=== PATIENT | female | born 1985 | race Two or more races ===

== ENCOUNTER 2017-06-10 09:00 | Observation (INO) | payer MEDICAID ==
[2017-06-10 10:26] LABS: Basophils # (auto) 0.1 uL; Basophils % (auto) 0.9 % (0.0-2.0); CONDITION Y; Eosinophils # (auto) 0.1 uL; Eosinophils % (auto) 1.1 % (0.0-7.0); Hematocrit 36.2 % (36.0-46.0); Hemoglobin 12.1 g/dL (12.2-16.2); Lymphocytes # (auto) 1.9 uL; Lymphocytes % (auto) 21.7 % (10.0-50.0); Mean Corpuscular Hemoglobin 29.6 pg (28.0-32.0); Mean Corpuscular Hgb Conc. 33.4 g/dL (32.0-36.0); Mean Corpuscular Volume 88.5 fL (80.0-100.0); Mean Platelet Volume 11.1 fL (7.4-10.4); Monocytes # (auto) 0.5 uL; Neutrophils # (auto) 6.2 uL; Neutrophils % (auto) 70.3 % (37.0-80.0); Platelet Count (auto) 283 10^3/uL (140-450); Red Cell Distribution Width 14.7 % (11.6-16.0); White Blood Cell 8.9 10^3/uL (4.4-10.8)
== END 2017-06-10 10:10 | disposition home or self-care (01) | DRG 566 ==
LOC: LDRP 09:00
PROVIDERS: ADMIT Specialist; ATTEND Specialist
DX: O26.893 Other specified pregnancy related conditions, third trimester (principal); Z3A.35 35 weeks gestation of pregnancy
CPT/HCPCS: 36415; 59025; 81002; 85025; 86592; G0378

== ENCOUNTER 2017-06-17 08:30 | Observation (INO) | payer MEDICAID ==
[~2017-06-17] VITALS: Ht 154.9 cm; Wt 81.6 kg
[2017-06-17] MEDS ORDERED: LACTATED RINGER'S 1,000 ML IV ONE (11:04)
[2017-06-17] MEDS ORDERED: LACTATED RINGER'S 1,000 ML IV SCH (11:04)
[2017-06-17] MEDS: TERBUTALINE SULFATE 1 MG/ML 1ML VIAL SC SCH ×3 (11:42→13:15)
[2017-06-17] MEDS ORDERED: PREN-96 PO (12:16)
== END 2017-06-17 14:30 | disposition home or self-care (01) | DRG 566 ==
LOC: LDRP 08:30
PROVIDERS: ADMIT Specialist; ATTEND Specialist
DX: O24.419 Gestational diabetes mellitus in pregnancy, unspecified control (principal); O60.03 Preterm labor without delivery, third trimester; Z3A.36 36 weeks gestation of pregnancy; Z87.891 Personal history of nicotine dependence
CPT/HCPCS: 59025; 76818; 81002; 82962; 96360; 96361; 96372; G0378; J3105; 96366

== ENCOUNTER 2017-06-24 09:30 | Observation (INO) | payer MEDICAID ==
[~2017-06-24 09:30] MED LIST: PREN-96 PO
== END 2017-06-24 10:40 | disposition home or self-care (01) | DRG 566 ==
LOC: LDRP 09:30
PROVIDERS: ADMIT Obstetrics & Gynecology; ATTEND Obstetrics & Gynecology
DX: O62.9 Abnormality of forces of labor, unspecified (principal); Z3A.37 37 weeks gestation of pregnancy
CPT/HCPCS: 59025; 81002; G0378

== ENCOUNTER 2017-07-01 08:40 | Observation (INO) | payer MEDICAID ==
[~2017-07-01] VITALS: Ht 1 cm; Wt 0.5 kg
[2017-07-01] MEDS ORDERED: TERBUTALINE SULFATE 1 MG/ML 1ML VIAL SC ONE (10:24)
[2017-07-02] MEDS ORDERED: TERBUTALINE SULFATE 1 MG/ML 1ML VIAL SC ONE (10:00)
== END 2017-07-01 11:10 | disposition home or self-care (01) | DRG 566 ==
LOC: LDRP 08:40
PROVIDERS: ADMIT Specialist; ATTEND Specialist
DX: O24.419 Gestational diabetes mellitus in pregnancy, unspecified control (principal); Z3A.38 38 weeks gestation of pregnancy
CPT/HCPCS: 59025; 76818; 81002; 82948; 82962; 96372; G0378; J3105

== ENCOUNTER 2017-07-06 04:14 | Inpatient (IN) | payer MEDICAID ==
[~2017-07-06] VITALS: Ht 157.5 cm; Wt 88.9 kg
[2017-07-06] VITALS (12 sets, daily range): BP systolic 104–124; BP diastolic 51–73
[2017-07-06] MEDS: LACTATED RINGER'S 1,000 ML IV SCH ×3 (04:19→20:19)
[2017-07-06 04:46] LABS: Urine Bilirubin Negative (Negative); Urine Blood 1+ /uL (Negative); Urine Color Yellow (Yellow); Urine Glucose Normal (Normal); Urine Ketone Negative (Negative); Urine Mucus FEW (None Seen); Urine Nitrite Negative (Negative); Urine RBC 1 /hpf (0 - 4); Urine Squamous Epithelial Cell FEW /hpf (<5); Urine Urobilinogen Normal (Negative)
[2017-07-06 05:16] LABS: Basophils # (auto) 0.1 uL; Basophils % (auto) 0.7 % (0.0-2.0); Eosinophils # (auto) 0.1 uL; Eosinophils % (auto) 1.2 % (0.0-7.0); Hematocrit 38.4 % (36.0-46.0); Hemoglobin 12.8 g/dL (12.2-16.2); Lymphocytes # (auto) 2.8 uL; Lymphocytes % (auto) 31.2 % (10.0-50.0); Mean Corpuscular Hemoglobin 29.5 pg (28.0-32.0); Mean Corpuscular Hgb Conc. 33.3 g/dL (32.0-36.0); Mean Corpuscular Volume 88.6 fL (80.0-100.0); Mean Platelet Volume 9.8 fL (6.9-10.8); Monocytes # (auto) 0.7 uL; Monocytes % (auto) 7.3 % (0.0-12.0); Neutrophils # (auto) 5.3 uL; Neutrophils % (auto) 59.6 % (37.0-80.0); Nucleated Red Blood Cells % 0.1 %; Platelet Count (auto) 270 10^3/uL (140-450); Red Cell Distribution Width 14.7 % (11.8-14.3); White Blood Cell 8.9 10^3/uL (4.4-10.8)
[2017-07-06] MEDS ORDERED: TERBUTALINE SULFATE 1 MG/ML 1ML VIAL SC ONE (05:28)
[2017-07-06 05:29] LABS: INR 0.9 (0.9-1.15); Partial Thromboplastin Time 30.9 sec (22.64-33.71); Prothrombin Time 9.8 sec (9.37-12.3)
[2017-07-06 05:44] LABS: Albumin 2.8 g/dL (3.4-5.0); BUN/Creatinine Ratio 18.2; Calcium 8.9 mg/dL (8.5-10.1); Potassium 4.5 mmol/L (3.5-5.1)
[2017-07-06 05:47] LABS: Bilirubin, Total 0.4 mg/dL (0.2-1.0); Total Protein 6.5 g/dL (6.4-8.2)
[2017-07-06] MEDS ORDERED: fentaNYL CITRATE 100 MCG/2 ML VL ONE (07:16)
[2017-07-06] MEDS ORDERED: MIDAZOLAM HCL 1MG/1ML-2 ML VIAL ONE (07:37)
[2017-07-06] MEDS ORDERED: LACT. RINGERS/OXYTOCIN 20UNITS 1,000 ML IV SCH (08:12)
[2017-07-06] MEDS ORDERED: MORPHINE SULF INJ 2 MG/ML SYRINGE 1ML IV PRN (08:15)
[2017-07-06] MEDS ORDERED: ceFAZolin 1GM/50ML D5W 50 ML IV SCH (08:15)
[2017-07-06] MEDS ORDERED: ONDANSETRON HCL 4 MG/2 ML VIAL IV PRN (08:15)
[2017-07-06] MEDS ORDERED: ePHEDrine SULFATE 50 MG/ML AMP IV PRN (08:45)
[2017-07-06] MEDS ORDERED: HYDROmorphone HCL 2 MG/ML VL IV PRN (08:45)
[2017-07-06] MEDS ORDERED: hydrALAZINE HCL 20 MG/ML VL IV PRN (08:45)
[2017-07-06] MEDS ORDERED: ONDANSETRON HCL 4 MG/2 ML VIAL IV ONE (08:45)
[2017-07-06] MEDS: KETOROLAC TROMETH 30 MG/ML 1ML VIAL IV PRN ×2 (09:37→17:51)
[2017-07-06] MEDS: HYDROmorphone HCL 2 MG/ML VL IV PRN ×3 (11:32→20:01)
[2017-07-06] MEDS ORDERED: OXYTOCIN 10UNIT/ML 1ML VIAL IV ONE (12:17)
[2017-07-06] MEDS ORDERED: ceFAZolin 1GM VL IV ONE (12:17)
[2017-07-06] MEDS: ceFAZolin 1GM/50ML D5W 50 ML IV SCH ×2 (16:00→23:43)
[2017-07-06 20:25] LABS: Basophils # (auto) 0 uL; Basophils % (auto) 0.2 % (0.0-2.0); Eosinophils # (auto) 0 uL; Eosinophils % (auto) 0.1 % (0.0-7.0); Hematocrit 30.1 % (36.0-46.0); Hemoglobin 9.9 g/dL (12.2-16.2); Lymphocytes # (auto) 1.9 uL; Lymphocytes % (auto) 15.6 % (10.0-50.0); Mean Corpuscular Hemoglobin 29.5 pg (28.0-32.0); Mean Corpuscular Hgb Conc. 32.9 g/dL (32.0-36.0); Mean Corpuscular Volume 89.6 fL (80.0-100.0); Mean Platelet Volume 9.8 fL (6.9-10.8); Monocytes # (auto) 0.7 uL; Monocytes % (auto) 5.9 % (0.0-12.0); Neutrophils # (auto) 9.8 uL; Neutrophils % (auto) 78.2 % (37.0-80.0); Platelet Count (auto) 224 10^3/uL (140-450); White Blood Cell 12.5 10^3/uL (4.4-10.8)
[2017-07-07] MEDS: HYDROmorphone HCL 2 MG/ML VL IV PRN (00:54)
[2017-07-07 02:33] VITALS: BP 102/62
[2017-07-07] MEDS: KETOROLAC TROMETH 30 MG/ML 1ML VIAL IV PRN (02:52)
[2017-07-07 03:30] VITALS: BP 97/59
[2017-07-07] MEDS ORDERED: SIMETHICONE 80 MG CHEWABLE TABLET PO SCH (06:00)
[2017-07-07] MEDS: HYDROcodone-ACET 5/325MG TAB PO PRN ×3 (06:42→17:28)
[2017-07-07 06:53] LABS: Basophils # (auto) 0 uL; Basophils % (auto) 0.4 % (0.0-2.0); Eosinophils # (auto) 0 uL; Eosinophils % (auto) 0.2 % (0.0-7.0); Hematocrit 31.9 % (36.0-46.0); Hemoglobin 9.7 g/dL (12.2-16.2); Lymphocytes # (auto) 2.2 uL; Lymphocytes % (auto) 17.9 % (10.0-50.0); Mean Corpuscular Hemoglobin 29.5 pg (28.0-32.0); Mean Corpuscular Hgb Conc. 30.4 g/dL (32.0-36.0); Mean Corpuscular Volume 97.1 fL (80.0-100.0); Mean Platelet Volume 9.9 fL (6.9-10.8); Monocytes # (auto) 0.9 uL; Monocytes % (auto) 7.6 % (0.0-12.0); Neutrophils % (auto) 73.9 % (37.0-80.0); Platelet Count (auto) 157 10^3/uL (140-450); Red Cell Distribution Width 16.2 % (11.8-14.3); White Blood Cell 12.1 10^3/uL (4.4-10.8)
[2017-07-07 07:30] VITALS: BP 97/49
[2017-07-07] MEDS: DOCUSATE CALCIUM 240 MG CAP PO SCH (09:48)
[2017-07-07] MEDS: DOCUSATE SOD 100 MG CAP PO SCH ×2 (09:48→21:49)
[2017-07-07] MEDS: LACTATED RINGER'S 1,000 ML IV SCH ×2 (10:20→15:04)
[2017-07-07 11:30] VITALS: BP 98/54
[2017-07-07] MEDS: SIMETHICONE 80 MG CHEWABLE TABLET PO PRN ×2 (11:47→12:16)
[2017-07-07] MEDS: IBUPROFEN 800 MG TAB PO PRN (14:33)
[2017-07-07 15:43] VITALS: BP 109/70
[2017-07-07 20:11] VITALS: BP 108/71
[2017-07-08] VITALS (8 sets, daily range): BP systolic 104–126; BP diastolic 50–87
[2017-07-08] MEDS: HYDROcodone-ACET 5/325MG TAB PO PRN ×4 (00:13→17:22)
[2017-07-08] MEDS: LACTATED RINGER'S 1,000 ML IV SCH ×3 (01:04→21:04)
[2017-07-08] MEDS ORDERED: IBUPROFEN 400 MG TAB PO ONE (02:58)
[2017-07-08] MEDS: IBUPROFEN 800 MG TAB PO PRN ×3 (03:12→22:37)
[2017-07-08] MEDS: DOCUSATE CALCIUM 240 MG CAP PO SCH (10:05)
[2017-07-08] MEDS: DOCUSATE SOD 100 MG CAP PO SCH ×2 (10:05→22:30)
[2017-07-09 03:10] VITALS: BP 109/54
[2017-07-09 08:00] VITALS: BP 117/81
[2017-07-09] MEDS: IBUPROFEN 800 MG TAB PO PRN (09:35)
[2017-07-09] MEDS: DOCUSATE CALCIUM 240 MG CAP PO SCH (09:58)
[2017-07-09] MEDS: DOCUSATE SOD 100 MG CAP PO SCH (09:59)
== END 2017-07-09 10:00 | disposition home or self-care (01) | DRG 540 ==
LOC: LDRP 04:14
PROVIDERS: ADMIT Obstetrics & Gynecology; ATTEND Obstetrics & Gynecology
PROC: 4A0HXCZ Measurement of Products of Conception, Cardiac Rate, External Approach (ICD-10-PCS; 2017-07-06)
PROC: 10D00Z1 Extraction of Products of Conception, Low, Open Approach (ICD-10-PCS; principal; 2017-07-06 07:21)
DX: O34.211 Maternal care for low transverse scar from previous cesarean delivery (principal); O60.23X0 Term delivery with preterm labor, third trimester, not applicable or unspecified; O24.92 Unspecified diabetes mellitus in childbirth; Z37.0 Single live birth; Z3A.38 38 weeks gestation of pregnancy
CPT/HCPCS: 36415; 51702; 59025; 80053; 81001; 82962; 85025; 85610; 85730; 86592; 86850; 86900; 86901; 96365; 96366; 96372; 96375; J0690; J1885; J2250